=== PATIENT | male | born 1995 | race African-American/Black ===

== ENCOUNTER 2023-07-19 21:58 | Emergency (ER) | payer MEDICAID ==
[~2023-07-19] VITALS: Ht 167.6 cm; Wt 70.0 kg
[2023-07-19 22:15] VITALS: PULSE 89; RESP 18; O2SAT 100
[2023-07-19 23:07] LABS: Basophils # (auto) 0 10 ^3/uL (0-0.2); Basophils % (auto) 0.4 % (0.0-2.0); Eosinophils # (auto) 0 10 ^3/uL (0-0.8); Eosinophils % (auto) 0.3 % (0.0-7.0); Hematocrit 46.6 % (41.0-53.0); Hemoglobin 15.6 g/dL (13.5-17.5); Lymphocytes # (auto) 3.8 10 ^3/uL (0.4-5.4); Lymphocytes % (auto) 34.8 % (10.0-50.0); Mean Corpuscular Hemoglobin 29.3 pg (28.0-32.0); Mean Corpuscular Hgb Conc. 33.5 g/dL (32.0-36.0); Mean Corpuscular Volume 87.5 fL (80.0-100.0); Monocytes # (auto) 0.8 10 ^3/uL (0-1.3); Monocytes % (auto) 7.1 % (0.0-12.0); Neutrophils # (auto) 6.3 10 ^3/uL (1.6-8.6); Neutrophils % (auto) 57.4 % (37.0-80.0); Nucleated Red Blood Cells % 0.1 %; Red Blood Cells 5.33 10^6/uL (4.5-5.90); Red Cell Distribution Width 14.2 % (11.8-14.3); White Blood Cell 10.9 10^3/uL (4.4-10.8)
[2023-07-19 23:36] LABS: Acetaminophen < 2.0 UG/ML (10.0-20.0); Alanine Aminotransferase 48 U/L (7-40); Albumin 4.6 g/dL (3.2-4.8); Alkaline Phosphatase 88 U/L (46-116); Anion Gap 10 (5-15); Aspartate Aminotransferase 62 U/L (13-40); BUN/Creatinine Ratio 13.4 (10.0-20.0); Blood Alcohol 114.5 mg/dL (<10); Blood Urea Nitrogen 15 mg/dL (9-23); Calcium 9.9 mg/dL (8.5-10.1); Carbon Dioxide 26 mmol/L (20-30); Chloride 107 mmol/L (98-107); Glucose 66 mg/dL (74-106); Potassium 3.8 mmol/L (3.5-5.1); Salicylate < 3.0 mg/dL (2.8-20.0); Sodium 143 mmol/L (136-145); Total Protein 7.2 g/dL (5.7-8.2)
[2023-07-20 08:17] LABS: Urine Epithelial Cast None Seen /hpf (<5)
[2023-07-20 08:29] LABS: Urine Bacteria FEW /hpf (None Seen); Urine Blood Negative /uL (Negative); Urine Clarity Clear (Clear); Urine Color Yellow (Yellow); Urine Protein, UAD Negative (Negative); Urine Specific Gravity 1.022 (1.001-1.035); Urine Urobilinogen Normal (Negative); Urine WBC 2 /hpf (0 - 3); Urine pH 6.5 (5.0-8.0)
[2023-07-20 08:37] LABS: Amphetamine Screen, Urine Pos (NEGATIVE); Barbiturate Scree,Urine Neg (NEGATIVE); Benzodiazephine Screen, Urine Neg (NEGATIVE); Cocaine Screen, Urine Neg (NEGATIVE)
[2023-07-20 08:38] LABS: Cannabinoid Screen, Urine Neg (NEGATIVE); Opiate Scree,Urine Neg (NEGATIVE); Phencyclidine Screen, Urine Neg (NEGATIVE)
[2023-07-20 09:13] VITALS: RESP 16; O2SAT 98
[2023-07-20] MEDS: OLANZapine 5 MG TAB PO SCH ×2 (15:23→21:35)
[2023-07-20] MEDS ORDERED: LORazepam 0.5 MG TAB PO ONE (15:30)
[2023-07-20 20:15] VITALS: PULSE 84; RESP 19; O2SAT 99
[2023-07-21] MEDS: OLANZapine 5 MG TAB PO SCH (05:43)
[2023-07-21 08:00] VITALS: PULSE 76; RESP 16; O2SAT 98
[2023-07-21 17:43] VITALS: BP 118/78; PULSE 80; RESP 16; TEMP 98.1; O2SAT 98
== END 2023-07-21 18:00 | disposition short-term general hospital (02) ==
LOC: ER 21:58 → EDBD 21:58 → ER 07-21 12:02
DX: F29 Unspecified psychosis not due to a substance or known physiological condition (principal); F41.9 Anxiety disorder, unspecified; R41.82 Altered mental status, unspecified; F32.9 Major depressive disorder, single episode, unspecified; Z79.899 Other long term (current) drug therapy
CPT/HCPCS: 36415; 80053; 80307; 80320; 80329; 81001; 85025

== ENCOUNTER 2024-05-24 18:38 | Emergency (ER) | payer MEDICAID ==
[~2024-05-24] VITALS: Ht 165.1 cm; Wt 72.7 kg
[2024-05-24 20:06] LABS: Basophils # (auto) 0.1 10 ^3/uL (0-0.2); Basophils % (auto) 0.5 % (0.0-2.0); Eosinophils # (auto) 0 10 ^3/uL (0-0.8); Eosinophils % (auto) 0.3 % (0.0-7.0); Hematocrit 44.9 % (41.0-53.0); Hemoglobin 15.2 g/dL (13.5-17.5); Lymphocytes % (auto) 30.1 % (10.0-50.0); Mean Corpuscular Hgb Conc. 33.8 g/dL (32.0-36.0); Monocytes # (auto) 0.5 10 ^3/uL (0-1.3); Monocytes % (auto) 5.2 % (0.0-12.0); Neutrophils # (auto) 6.4 10 ^3/uL (1.6-8.6); Neutrophils % (auto) 63.9 % (37.0-80.0); Platelet Count (auto) 297 10^3/uL (140-450); Red Blood Cells 5.05 10^6/uL (4.5-5.90); Red Cell Distribution Width 14.1 % (11.8-14.3)
[2024-05-24 20:19] LABS: Chloride 108 mmol/L (98-107); Potassium 3.7 mmol/L (3.5-5.1); Sodium 142 mmol/L (136-145)
[2024-05-24 20:20] LABS: Anion Gap 11 (5-15); Calcium 9.8 mg/dL (8.7-10.4); Carbon Dioxide 23 mmol/L (20-31)
[2024-05-24 20:25] LABS: BUN/Creatinine Ratio 14.7 (10.0-20.0); Blood Urea Nitrogen 14 mg/dL (9-23); Glucose 113 mg/dL (74-106)
[2024-05-24 20:51] LABS: Blood Alcohol 63.3 mg/dL (<10)
--- NOTE | 2024-05-25 00:20 | ED.PDOC ---
Psychiatric HPI Comments 29-year-old male complaining of auditory hallucinations. Patient states he did drink alcohol and use methamphetamines this evening. Patient also reports a history of depression in his he was a friend. Patient denies any thoughts of hurting himself or hurting on else. Can not remember what he was medication was used to take. Patient is currently living on the streets. Patient brought in by EMS. Chief Complaint: Mental Health Time Seen by MD: 18:45 Reviewed Notes: Nurses Notes Information Source: Patient, Emergency Med Personnel Mode of Arrival: Ambulatory Presents with: Depression History of: Schizophrenia Past Medical History PAST MEDICAL HISTORY: Schizophrenia Surgical History: Denies all surgeries Family History Family History: Reviewed,noncontributory to illness, No family hx of Cancer, No family hx of DM, No family hx of Heart demarcus, No family hx of HTN, No family hx ofKidney demarcus, No family hx of Liver demarcus, No family hx of Lung demarcus, No family hx of Stroke Social History Smoker: Non-Smoker Alcohol: Denies ETOH Use Drugs: Denies Drug Use Lives In: Home Constitutional: denies: chills, diaphoresis, fatigue, fever, malaise, sweats, weakness, others EENTM: denies: blurred vision, double vision, ear bleeding, ear discharge, ear drainage, ear pain, ear ringing, eye pain, eye redness, hearing loss, mouth pain, mouth swelling, nasal discharge, nose bleeding, nose congestion, nose pain, photophobia, tearing, throat pain, throat swelling, voice changes, others Respiratory: denies: cough, hemoptysis, orthopnea, SOB at rest, shortness of breath, SOB with excertion, stridor, wheezing, others Cardiovascular: denies: chest pain, dizzy spells, diaphoresis, Dyspnea on exertion, edema, irregular heart beat, left arm pain, lightheadedness, palpitations, PND, syncope, others Gastrointestinal: denies: abdomen distended, abdominal pain, blood streaked bowels, constipated, diarrhea, dysphagia, difficulty swallowing, hematemesis, melena, nausea, poor appetite, poor fluid intake, rectal bleeding, rectal pain, vomiting, others Genitourinary: denies: burning, dysuria, flank pain, frequency, hematuria, incontinence, penile discharge, penile sore, pain, testicle pain, testicle swelling, urgency, others Neurological: denies: dizziness, fainting, headache, left sided numbness, left sided weakness, numbness, paresthesia, pre-existing deficit, right sided numbness, right sided weakness, seizure, speech problems, tingling, tremors, weakness, others Musculoskeletal: denies: back pain, gout, joint pain, joint swelling, muscle pain, muscle stiffness, neck pain, others Integumetry: denies: bruises, change in color, change in hair/nails, dryness, laceration, lesions, lumps, rash, wounds, others Allergic/Immunocompromised: denies: Difficulty Healing, Frequent Infections, Hives, Itching, others Physical Exam General Appearance: No Apparent Distress, Normal HEENT: Normal ENT Inspection, Pharynx Normal, TMs Normal Neck: Full Range of Motion, Non-Tender, Normal, Normal Inspection Respiratory: Chest Non-Tender, Lungs Clear, No Accessory Muscle Use, No Respiratory Distress, Normal Breath Sounds Cardiovascular: No Edema, No JVD, No Murmur, No Gallop, Normal Peripheral Pulses, Regular Rate/Rhythm Breast Exam: Deferred Gastrointestinal: No Organomegaly, Non Tender, No Pulsatile Mass, Normal Bowel Sounds, Soft Genitalia: Deferred Pelvic: Deferred Rectal: Deferred Extremities: No calf tenderness, Normal capillary refill, Normal inspection, Normal range of motion, Non-tender, No pedal edema Musculoskeletal : Apperance: Normal Neurologic: Alert, warp placer II-XII nml as Tested, No Motor Deficits, Normal Affect, Normal Mood, No Sensory Deficits Cerebellar Function: Normal Reflexes: Normal Skin: Dry, Normal Color, Warm Lymphatic: No Adenopathy Was a procedure done? Was a procedure done?: No Psych Differential Dx Psych. Differential Dx: Anxiety, Bipolar Disorder, Depression, Hopeless OD Differential Dx: Schizophrenia, Substance Abuse X-Ray, Labs, Meds, VS Vital Signs Date Time Temp Pulse Resp B/P (MAP) Pulse Ox O2 Delivery O2 Flow Rate FiO2 05/24/24 18:40 97.7 113 18 149/80 (103) 100 Lab Test 05/24/24 19:44 Range/Units White Blood Count 10.0 4.4-10.8 10^3/uL Red Blood Count 5.05 4.5-5.90 10^6/uL Hemoglobin 15.2 13.5-17.5 g/dL Hematocrit 44.9 41.0-53.0 % Mean Corpuscular Volume 89.0 80.0-100.0 fL Mean Corpuscular Hemoglobin 30.0 28.0-32.0 pg Mean Corpuscular Hemoglobin Concent 33.8 32.0-36.0 g/dL Red Cell Distribution Width 14.1 11.8-14.3 % Platelet Count 297 140-450 10^3/uL Mean Platelet Volume 8.0 6.9-10.8 fL Neutrophils (%) (Auto) 63.9 37.0-80.0 % Lymphocytes (%) (Auto) 30.1 10.0-50.0 % Monocytes (%) (Auto) 5.2 0.0-12.0 % Eosinophils (%) (Auto) 0.3 0.0-7.0 % Basophils (%) (Auto) 0.5 0.0-2.0 % Neutrophils # (Auto) 6.4 1.6-8.6 10 ^3/uL Lymphocytes # (Auto) 3.0 0.4-5.4 10 ^3/uL Monocytes # (Auto) 0.5 0-1.3 10 ^3/uL Eosinophils # (Auto) 0 0-0.8 10 ^3/uL Basophils # (Auto) 0.1 0-0.2 10 ^3/uL Nucleated Red Blood Cells 0.0 % Sodium Level 142 136-145 mmol/L Potassium Level 3.7 3.5-5.1 mmol/L Chloride Level 108 H 98-107 mmol/L Carbon Dioxide Level 23 20-31 mmol/L Anion Gap 11 5-15 Blood Urea Nitrogen 14 9-23 mg/dL Creatinine 0.95 0.700-1.30 mg/dL Glomerular Filtration Rate Calc 110 >90 mL/min BUN/Creatinine Ratio 14.7 10.0-20.0 Serum Glucose 113 H 74-106 mg/dL Calcium Level 9.8 8.7-10.4 mg/dL Plasma/Serum Blood Alcohol 63.3 H <10 mg/dL X-Ray, Labs, Meds, VS Comment Imaging: X-rays and CT scans were reviewed and interpreted by this provider, imaging shows no fractures and no pathological disease. Pending radiology tri guerrero. Laboratory: Labs reviewed and interpreted by this provider. No significant abnormalities noted. Patient has prior medical visits reviewed. Med reconciliation performed Vital signs reviewed Pending psychiatric consult Time of 1ST Reevaluation: 00:20 Reevaluation 1ST: Improved Patient Education/Counseling: Diagnosis, Treatment Family Education/Counseling: Diagnosis Departure 1 Departure Time of Disposition: 00:18 Impression: Primary Impression: Psychosis Qualified Codes: F20.1 - Disorganized schizophrenia Additional Impressions: Drug abuse Schizophrenia Qualified Codes: F20.1 - Disorganized schizophrenia Disposition: 30 STILL A PATIENT Condition: Stable Discharged With: Self Critical Care Note Critical Care Time?: No Stability Stability form required: No Heart Score Heart Score: Heart Score Response (Comments) Value History N/A 0 EKG N/A 0 Age N/A 0 Risk Factors N/A 0 Troponin N/A 0 Total 0 JENNI GIBBONS May 25, 2024 00:20
[2024-05-25 02:00] VITALS: BP 125/83; PULSE 95; RESP 18; O2SAT 98
--- NOTE | 2024-05-25 03:50 | DVHINCON2 ---
Date of Service if different f: May 25, 2024 Time of Service: 03:32 Consultation ([facility]) Labs Laboratory Tests Test 05/24/24 19:44 White Blood Count 10.0 10^3/uL (4.4-10.8) Red Blood Count 5.05 10^6/uL (4.5-5.90) Hemoglobin 15.2 g/dL (13.5-17.5) Hematocrit 44.9 % (41.0-53.0) Mean Corpuscular Volume 89.0 fL (80.0-100.0) Mean Corpuscular Hemoglobin 30.0 pg (28.0-32.0) Mean Corpuscular Hemoglobin Concent 33.8 g/dL (32.0-36.0) Red Cell Distribution Width 14.1 % (11.8-14.3) Platelet Count 297 10^3/uL (140-450) Mean Platelet Volume 8.0 fL (6.9-10.8) Neutrophils (%) (Auto) 63.9 % (37.0-80.0) Lymphocytes (%) (Auto) 30.1 % (10.0-50.0) Monocytes (%) (Auto) 5.2 % (0.0-12.0) Eosinophils (%) (Auto) 0.3 % (0.0-7.0) Basophils (%) (Auto) 0.5 % (0.0-2.0) Neutrophils # (Auto) 6.4 10 ^3/uL (1.6-8.6) Lymphocytes # (Auto) 3.0 10 ^3/uL (0.4-5.4) Monocytes # (Auto) 0.5 10 ^3/uL (0-1.3) Eosinophils # (Auto) 0 10 ^3/uL (0-0.8) Basophils # (Auto) 0.1 10 ^3/uL (0-0.2) Nucleated Red Blood Cells 0.0 % Sodium Level 142 mmol/L (136-145) Potassium Level 3.7 mmol/L (3.5-5.1) Chloride Level 108 mmol/L (98-107) Carbon Dioxide Level 23 mmol/L (20-31) Anion Gap 11 (5-15) Blood Urea Nitrogen 14 mg/dL (9-23) Creatinine 0.95 mg/dL (0.700-1.30) Glomerular Filtration Rate Calc 110 mL/min (>90) BUN/Creatinine Ratio 14.7 (10.0-20.0) Serum Glucose 113 mg/dL (74-106) Calcium Level 9.8 mg/dL (8.7-10.4) Plasma/Serum Blood Alcohol 63.3 mg/dL (<10) Appearance: Stated age Psychomotor activity: WNL Behavioral: Cooperative Eye contact: Appropriate Speech: WNL Affect: Appropriate Mood: Depressed Thought processes: Linear/Goal-directed Thought content: Hallucinations (auditory) Suicidal ideations: Absent Homicidal ideations: Absent Orientation: Person, Place, Time, Situation Memory intact: Recent Intellect: Average Abstractability: WNL Concentration: Adequate Attention: Adequate Judgement: Poor Insight: Poor Vitals Vital Signs Date Time Temp Pulse Resp B/P (MAP) Pulse Ox O2 Delivery O2 Flow Rate FiO2 05/25/24 02:00 95 18 98 Room Air* 0 21 05/25/24 02:00 125/83 (97) 05/24/24 18:40 97.7 Treatment plan discussed: With staff Medication adjusted: Yes Labs ordered: No Psychotherapy provided: No Type: Voluntary History of Present Illness Reason for Consult : psychiatric evaluation PER ED PHYSICIAN: 29-year-old male complaining of auditory hallucinations. Patient states he did drink alcohol and use methamphetamines this evening. Patient also reports a history of depression in his he was a friend. Patient denies any thoughts of hurting himself or hurting on else. Can not remember what he was medication was used to take. Patient is currently living on the streets. Patient brought in by EMS. PSYCHIATRIST HPI: The patient was seen and evaluated at [facility] ED via telepsychiatry platform. 29 yr old male reported he feels depressed. He has been hearing voices. He stated that zyprexa helped him reduce his voices in the past, but he hasn't been on it since he has been homeless. He stated he would feel comfortable going to the Crisis [facility]idential treatment to help him stabilize. She denied having suicidal and homicidal ideation and auditory and visual hallucinations. Past Psychiatric History : Diagnosed with schizophrenia and ADHD. Hospitalized multiple times. One past suicide attempt by taking medicine. Past Medical History: none Current Medications: None Substance use: Drinks alcohol every day. Smokes MJ occasionally. Uses meth daily. Denied other substance use. Has been to rehab in past. Social History : Homeless. Diagnosis: UNSPECIFIED PSYCHOTIC DISORDER; METH USE DISORDER Formulation: This 29yr old male appears to suffer psychosis which is likely due to his daily meth use, but could be due to schizophrenia exacerbated by meth use. He may benefit from starting zyprexa to reduce hallucinations and referral to the crisis residential treatment. He does not meet criteria for psychiatric hospitalization. Plan: 1. The patient is psychologically cleared for discharge. 2. Legal-voluntary. 3. Medications:recommend starting Zyprexa 5mg BID to help reduce hallucinations. 4. Follow up with outpatient mental health for medication management and therap y. 5. Please contact psychiatry if further follow up or reevaluation is desired. 6. Case discussed with ED FRAN Shearer. Assessment/Diagnosis/Plan Reviewed: Labs, Medications, Previous Orders EDIL NESBITT MD May 25, 2024 02:32
== END 2024-05-25 04:48 | disposition home or self-care (01) ==
LOC: ER 18:38 → EDBD 18:38 → ER 05-25 04:48
DX: F29 Unspecified psychosis not due to a substance or known physiological condition (principal); F20.1 Disorganized schizophrenia; F19.10 Other psychoactive substance abuse, uncomplicated
CPT/HCPCS: 36415; 80048; 80320; 85025

== ENCOUNTER 2024-05-25 13:40 | Inpatient (IN) | payer MEDICAID ==
[~2024-05-25] VITALS: Ht 167.6 cm; Wt 68.9 kg
--- NOTE | 2024-05-25 14:29 | ED.PDOC ---
Musculoskeletal HPI Comments 29 y/o male pt presents to the ER requesting saline. Patient reports that he drank 4 large beers today and used unknown drugs yesterday due to high. Patient denying any nausea. Patient also stating that he is hungry and requesting a sandwich. Patient complaining of bilateral feet pain. Patient has swelling to bilateral feet. Patient's feet dirty with mild odor. Patient has using open wound to the 1st and 4th digit of the left foot. Chief Complaint: Lower Extremity Time Seen by MD: 14:07 Primary Care Provider: NONE Reviewed Notes: Nurses Notes, Medications Allergies: Coded Allergies: NO KNOWN ALLERGIES (Unverified , 07/19/23) Information Source: Patient Mode of Arrival: Ambulatory Past Medical History PAST MEDICAL HISTORY: Schizophrenia Surgical History: Denies all surgeries Family History Family History: Reviewed,noncontributory to illness, No family hx of Cancer, No family hx of DM, No family hx of Heart demarcus, No family hx of HTN, No family hx of Kidney demarcus, No family hx of Liver demarcus, No family hx of Lung demarcus, No family hx of Stroke Social History Smoker: Non-Smoker Alcohol: Denies ETOH Use Drugs: Denies Drug Use Lives In: Home Constitutional: reports: others (Sleepy and under the influence of alcohol) EENTM: denies: blurred vision, double vision, ear bleeding, ear discharge, ear drainage, ear pain, ear ringing, eye pain, eye redness, hearing loss, mouth pain, mouth swelling, nasal discharge, nose bleeding, nose congestion, nose pain, photophobia, tearing, throat pain, throat swelling, voice changes, others Respiratory: denies: cough, hemoptysis, orthopnea, SOB at rest, shortness of breath, SOB with excertion, stridor, wheezing, others Cardiovascular: denies: chest pain, dizzy spells, diaphoresis, Dyspnea on exertion, edema, irregular heart beat, left arm pain, lightheadedness, palpitations, PND, syncope, others Gastrointestinal: denies: abdomen distended, abdominal pain, blood streaked bowels, constipated, diarrhea, dysphagia, difficulty swallowing, hematemesis, melena, nausea, poor appetite, poor fluid intake, rectal bleeding, rectal pain, vomiting, others Genitourinary: denies: burning, dysuria, flank pain, frequency, hematuria, incontinence, penile discharge, penile sore, pain, testicle pain, testicle swelling, urgency, others Neurological: denies: dizziness, fainting, headache, left sided numbness, left sided weakness, numbness, paresthesia, pre-existing deficit, right sided numbness, right sided weakness, seizure, speech problems, tingling, tremors, weakness, others Musculoskeletal: reports: others (Bilateral feet pain) Integumetry: denies: bruises, change in color, change in hair/nails, dryness, laceration, lesions, lumps, rash, wounds, others Allergic/Immunocompromised: denies: Difficulty Healing, Frequent Infections, Hives, Itching, others Hematologic/Lymphatic: denies: anemia, blood clots, easy bleeding, easy bruising, swollen glands, others Endocrine: denies: excessive hunger, excessive sweating, excessive thirst, excessive urination, flushing, intolerance to cold, intolerance to heat, unexplained weight gain, unexplained weight loss, others Psychiatric: reports: others (Patient reports that he is hearing voices and that the voices are telling him to hurt others. Patient reports the voices are telling him to get violent) All Other Systems: Reviewed and Negative Physical Exam General Appearance: Normal HEENT: Normal ENT Inspection, Pharynx Normal, TMs Normal Neck: Full Range of Motion, Non-Tender, Normal, Normal Inspection Respiratory: Chest Non-Tender, Lungs Clear, No Accessory Muscle Use, No Respiratory Distress, Normal Breath Sounds Cardiovascular: No Edema, No JVD, No Murmur, No Gallop, Normal Peripheral Pulses, Regular Rate/Rhythm Breast Exam: Deferred Gastrointestinal: No Organomegaly, Non Tender, No Pulsatile Mass, Normal Bowel Sounds, Soft Genitalia: Deferred Pelvic: Deferred Rectal: Deferred Extremities: No pedal edema Musculoskeletal : Location: Bilateral Extremity Location: Foot (mild swelling), Great Toe (Open wound to great toe on left foot), Toe 4 (Open wound to toe on left foot) Apperance: Swelling, Tenderness: Mild Neurologic: Alert, hammer runner II-XII nml as Tested, No Motor Deficits, Normal Affect, Normal Mood, No Sensory Deficits Cerebellar Function: Normal Reflexes: Normal Skin: Dry, Normal Color, Warm Lymphatic: No Adenopathy Was a procedure done? Was a procedure done?: No Differential Diagnosis EXT Differential Diagnosis: Cellulitis, Fracture, Contusion X-Ray, Labs, Meds, VS Vital Signs Date Time Temp Pulse Resp B/P (MAP) Pulse Ox O2 Delivery O2 Flow Rate FiO2 05/25/24 14:49 105 14 97 Room Air 05/25/24 14:49 99.0 105 14 119/77 (91) 97 99.0 05/25/24 13:46 98.3 100 16 141/84 (103) 100 PATIENT: WIL ROMEROACCT: [id number]: [id number] : 1995 LOC: ER ROOM / BED: / AGE / SEX: 29 / M ADM STATUS: REG ER SERVICE 26 ORDERING PHYSICIAN: ZHEN ARENAS TRANSLATIONAL SPECIALIST PROCEDURE(s): RFOOT - R FOOT 3 VIEW XRAY REASON: swelling, pain, possible infection 1st and 4th digit ORDER NUMBER(s): [id number], ACCESSION NUMBER(s): [id number] XY R FOOT 3 VIEW XRAY, INDICATION: swelling, pain, possible infection 1st and 4th digit TECHNICAL DATA: Frontal, oblique and lateral views were obtained of the right foot. COMPARISON: None FINDINGS: No fracture is identified. Joint spaces are maintained. Alignment is anatomic. The hallux sesamoids appear normal. Soft tissues are within normal limits. IMPRESSION: No osseous erosive changes are visualized. No acute fracture or dislocation of the right foot. ATED BY: MAURICIO WELCH MD DICTATED DATE/TIME: 05/25/24 150 SIGNED BY: MAURICIO WELCH MD SIGNED DATE/TIME: 05/25/24 1503 CC: PATIENT: WIL ROMERO ACCT: [id number]: [id number] : 1995 LOC: ER ROOM / BED: / AGE / SEX: 29 / M ADM STATUS: REG ER SERVICE 26 ORDERING PHYSICIAN: ZHEN ARENAS TRANSLATIONAL SPECIALIST PROCEDURE(s): LFOOT - L FOOT 3 VIEW XRAY REASON: bilateral feet pain, open wounds left foot ORDER NUMBER(s): [id number], ACCESSION NUMBER(s): [id number] CLINICAL INDICATION: bilateral feet pain, open wounds left foot TECHNIQUE: 3 radiographic views of the left foot were obtained. Comparison: None FINDINGS/IMPRESSION: Linear lucency ovr the distal part of the 4th toe distal phalanx on the oblique view which may be from overlying structures with nondisplaced fracture not completely excluded. Recommend correlation with point tenderness. Otherwise, no evidence of acute traumatic fractures or dislocations. The visualized joint space is well maintained. The alignment is anatomical. ATED BY: DEONNA DOMINGUEZ DO DICTATED DATE/TIME: 05/25/24 150 SIGNED BY: DEONNA DOMINGUEZ DO SIGNED DATE/TIME: 05/25/24 1507 CC: X-Ray, Labs, Meds, VS Comment Patient is sitting in a chair. Patient reports that he is hearing voices and that the horse or time to hurt people. Patient reports that he is going to get his eyelids. Patient requesting to go to a psych meneses. Patient got up and knocked over metal tray in room. Patient talking to people that are not present and yelling racial and taoism slurs. Patient to be moved to main ER for evaluation. Report given to Dr. Herrera Time of 1ST Reevaluation: 14:45 Reevaluation 1ST: Improved Time of 2ND Reevaluation: 15:10 Reevaluation 2ND: hallucinations Patient Education/Counseling: Other (transferred) Family Education/Counseling: Other, No Family Present Departure 1 Departure Time of Disposition: 15:21 Impression: Primary Impression: Fracture of toe of left foot Qualified Codes: S92.505A - Nondisplaced unspecified fracture of left lesser toe(s), initial encounter for closed fracture Additional Impressions: Hallucination, visual Auditory hallucinations Violent behavior Disposition: ADMITTED INPATIENT Condition: Guarded Critical Care Note Critical Care Time?: No Stability Stability form required: No Heart Score Heart Score: Heart Score Response (Comments) Value History N/A 0 EKG N/A 0 Age N/A 0 Risk Factors N/A 0 Troponin N/A 0 Total 0 ZHEN ARENAS [facility] May 25, 2024 14:29
--- NOTE | 2024-05-25 15:05 | DVH ---
XY R FOOT 3 VIEW XRAY, INDICATION: swelling, pain, possible infection 1st and 4th digit TECHNICAL DATA: Frontal, oblique and lateral views were obtained of the right foot. COMPARISON: None FINDINGS: No fracture is identified. Joint spaces are maintained. Alignment is anatomic. The hallux sesamoids a ppear normal. Soft tissues are within normal limits. IMPRESSION: No osseous erosive changes are visualized. No acute fracture or dislocation of the right foot.
--- NOTE | 2024-05-25 15:09 | DVH ---
CLINICAL INDICATION: bilateral feet pain, open wounds left foot TECHNIQUE: 3 radiographic views of the left foot were obtained. Comparison: None FINDINGS/IMPRESSION: Linear lucency ovr the distal part of the 4th toe distal phalanx on the oblique view which may be fro m overlying structures with nondisplaced fracture not completely excluded. Recommend correlation wit h point tenderness. Otherwise, no evidence of acute traumatic fractures or dislocations. The visualized joint space is well maintained. The alignment is anatomical.
[2024-05-25] MEDS: HALOPERIDOL LACTATE 5 MG/ML INJ VIAL ONE (15:19)
[2024-05-25] MEDS: MIDAZOLAM HCL 5 MG/ML-1ML VIAL ONE ×2 (15:19→15:20)
[2024-05-25] MEDS: HALOPERIDOL LACTATE 5 MG/ML INJ VIAL IM ONE (15:22)
[2024-05-25] MEDS: MIDAZOLAM HCL 5 MG/ML-1ML VIAL IM ONE (15:22)
[2024-05-25 15:58] VITALS: PULSE 109; RESP 25; O2SAT 94
[2024-05-25 16:32] LABS: Basophils # (auto) 0 10 ^3/uL (0-0.2); Basophils % (auto) 0.5 % (0.0-2.0); Eosinophils # (auto) 0.1 10 ^3/uL (0-0.8); Eosinophils % (auto) 1.7 % (0.0-7.0); Hematocrit 39.2 % (41.0-53.0); Hemoglobin 13.3 g/dL (13.5-17.5); Lymphocytes # (auto) 2.7 10 ^3/uL (0.4-5.4); Lymphocytes % (auto) 35.1 % (10.0-50.0); Mean Corpuscular Hgb Conc. 33.8 g/dL (32.0-36.0); Mean Corpuscular Volume 88.7 fL (80.0-100.0); Monocytes # (auto) 0.7 10 ^3/uL (0-1.3); Monocytes % (auto) 9.3 % (0.0-12.0); Neutrophils # (auto) 4.1 10 ^3/uL (1.6-8.6); Neutrophils % (auto) 53.4 % (37.0-80.0); Nucleated Red Blood Cells % 0.1 %; Platelet Count (auto) 242 10^3/uL (140-450); Red Blood Cells 4.42 10^6/uL (4.5-5.90); White Blood Cell 7.6 10^3/uL (4.4-10.8)
[2024-05-25 16:47] LABS: Chloride 108 mmol/L (98-107); Potassium 3.6 mmol/L (3.5-5.1); Sodium 142 mmol/L (136-145)
[2024-05-25 16:48] LABS: Anion Gap 10 (5-15); Carbon Dioxide 24 mmol/L (20-31)
[2024-05-25 16:49] LABS: Calcium 9.3 mg/dL (8.7-10.4)
[2024-05-25 16:54] LABS: BUN/Creatinine Ratio 21.1 (10.0-20.0); Blood Alcohol 45.2 mg/dL (<10); Blood Urea Nitrogen 16 mg/dL (9-23); Glucose 90 mg/dL (74-106)
[2024-05-25 17:12] LABS: Salicylate < 3.0 mg/dL (-30)
[2024-05-25 17:32] LABS: Acetaminophen < 2.0 UG/ML (10.0-20.0)
--- NOTE | 2024-05-25 18:38 | ED.PDOC ---
X-Ray, Labs, Meds, VS Vital Signs Date Time Temp Pulse Resp B/P (MAP) Pulse Ox O2 Delivery O2 Flow Rate FiO2 05/25/24 18:38 97 15 111/43 (65) 97 05/25/24 17:53 101 18 110/66 (81) 97 05/25/24 15:58 109 25 94 Room Air* 0 21 05/25/24 15:56 109 25 111/65 (80) 94 05/25/24 14:49 105 14 97 Room Air 05/25/24 14:49 99.0 105 14 119/77 (91) 97 99.0 05/25/24 13:46 98.3 100 16 141/84 (103) 100 Lab Test 05/25/24 16:18 Range/Units White Blood Count 7.6 4.4-10.8 10^3/uL Red Blood Count 4.42 L 4.5-5.90 10^6/uL Hemoglobin 13.3 L 13.5-17.5 g/dL Hematocrit 39.2 #L 41.0-53.0 % Mean Corpuscular Volume 88.7 80.0-100.0 fL Mean Corpuscular Hemoglobin 30.0 28.0-32.0 pg Mean Corpuscular Hemoglobin Concent 33.8 32.0-36.0 g/dL Red Cell Distribution Width 14.0 11.8-14.3 % Platelet Count 242 140-450 10^3/uL Mean Platelet Volume 8.1 6.9-10.8 fL Neutrophils (%) (Auto) 53.4 37.0-80.0 % Lymphocytes (%) (Auto) 35.1 10.0-50.0 % Monocytes (%) (Auto) 9.3 0.0-12.0 % Eosinophils (%) (Auto) 1.7 0.0-7.0 % Basophils (%) (Auto) 0.5 0.0-2.0 % Neutrophils # (Auto) 4.1 1.6-8.6 10 ^3/uL Lymphocytes # (Auto) 2.7 0.4-5.4 10 ^3/uL Monocytes # (Auto) 0.7 0-1.3 10 ^3/uL Eosinophils # (Auto) 0.1 0-0.8 10 ^3/uL Basophils # (Auto) 0 0-0.2 10 ^3/uL Nucleated Red Blood Cells 0.1 % Sodium Level 142 136-145 mmol/L Potassium Level 3.6 3.5-5.1 mmol/L Chloride Level 108 H 98-107 mmol/L Carbon Dioxide Level 24 20-31 mmol/L Anion Gap 10 5-15 Blood Urea Nitrogen 16 9-23 mg/dL Creatinine 0.76 0.700-1.30 mg/dL Glomerular Filtration Rate Calc 123 >90 mL/min BUN/Creatinine Ratio 21.1 H 10.0-20.0 Serum Glucose 90 74-106 mg/dL Calcium Level 9.3 8.7-10.4 mg/dL Salicylates Level < 3.0 -30 mg/dL Acetaminophen Level < 2.0 L 10.0-20.0 UG/ML Plasma/Serum Blood Alcohol 45.2 H <10 mg/dL Current Medications Medications (Trade) Dose Ordered Sig/Shireen Route Start Time Stop Time Status Last Admin Midazolam HCl (Versed Injection) 10 mg ONCE ONCE IM 05/25/24 16:30 05/25/24 16:31 DC 05/25/24 15:22 Haloperidol Lactate (Haldol) 10 mg ONCE ONCE IM 05/25/24 16:30 05/25/24 16:31 DC 05/25/24 15:22 The patient will be admitted with toxic encephalopathy The patient remained somewhat altered Time of 1ST Reevaluation: 18:37 (Patient initially presented with foot pain to the fast track area was seen by a nurse practitioner. I was made aware of the patient when patient became combative. i went to assess the patient, patient was responding to internal stimuli, being combative, having auditory and visual hallucinations.) Reevaluation 1ST: Improved Time of 2ND Reevaluation: 15:10 Reevaluation 2ND: hallucinations Patient Education/Counseling: Pt Unresponsive Family Education/Counseling: No Family Present Departure 1 Departure Time of Disposition: 15:21 Impression: Primary Impression: Fracture of toe of left foot Qualified Codes: S92.505A - Nondisplaced unspecified fracture of left lesser toe(s), initial encounter for closed fracture Additional Impressions: Violent behavior Auditory hallucinations Hallucination, visual Metabolic encephalopathy Disposition: 30 STILL A PATIENT Condition: Guarded Critical Care Note Critical Care Time?: Yes Critical care comment: Patient with acute altered mental status and combative behavior Authorized and Performed by: Yvonne Herrera MD Total critical care time: Approximately 38 minutes Due to a high probability of clinically significant, life threatening deterioration, the patient required my highest level of preparedness to intervene emergently and I personally spent this critical care time directly and personally managing the patient. This critical care time included obtaining a history; examining the patient; pulse oximetry; ordering and review of studies; arranging urgent treatment with development of a management plan; evaluation of patient's response to treatment; frequent reassessment; and, discussions with other providers. This critical care time was performed to assess and manage the high probability of imminent, life-threatening deterioration that could result in multi-organ failure. It was exclusive of separately billable procedures and treating other patients and teaching time. Please see my other sections and the rest of the note for further information on patient assessment and treatment. YVONNE HERRERA MD May 25, 2024 18:38 JHONNY HUTCHINS MD May 25, 2024 21:25
[2024-05-25 21:00] VITALS: PULSE 92; RESP 20; O2SAT 96
[2024-05-25] MEDS ORDERED: MORPHINE SULFATE INJ 2 MG/ml SYRG IV PRN (23:00)
[2024-05-25] MEDS ORDERED: DOCUSATE SOD 100 MG CAP PO PRN (23:00)
[2024-05-25] MEDS ORDERED: NITROGLYCERIN 0.4 MG SL TAB SL PRN (23:00)
[2024-05-25] MEDS ORDERED: ONDANSETRON HCL 4 MG/2 ML VIAL IV PRN (23:00)
--- NOTE | 2024-05-25 23:33 | DVHHPRES ---
History of Present Illness Resident Creating Document: JESS SOUZA RESIDENT History of Present Illness Patient is 29 years old male with past medical history of schizophrenia, substance abuse marijuana, cannabinoids, alcoholism came with a complaint of excessive alcohol drinking. Patient reported he had 4 large AR of alcohol and other unknown substance abuse yesterday. Following that patient was feeling a little bit confused and that is what brought him to the hospital. Patient also complained of bony pain of the foot. Patient denied any chest pain, shortness of breath, fever, dysuria, dysarthria, acute joint pain or swelling. Lab workup revealed serum alcohol 45.2. X-ray of the left foot revealed- Linear lucency over the distal part of the 4th toe distal phalanx on the oblique view which may be from overlying structures with nondisplaced fracture not completely excluded. Recommend correlation with point tenderness. Otherwise, no evidence of acute traumatic fractures or dislocations. History of right foot reviewed-No osseous erosive changes are visualized. No acute fracture or dislocation of the right foot. Past Medical History Schizophrenia, history of polysubstance abuse, history of alcoholism Past Surgical History None Past Social History Patient could not provide detailed family history Review of Systems Review of Systems Allergy- NKDA Personal History/ Social History- substance abuse, alcohol ingestion Patient was seen today at the bedside. Patient reports bony pain Cardiovascular- deny acute chest pain or shortness of breath or cough or palpitation Respiratory- denies cough or short of breath or wheezing Gastrointestinal- denies any rectal bleeding, nausea or vomiting Musculoskeletal-denies acute joint swelling or tenderness or redness Neurological- denies acute dysarthria, dysphagia, change in vision Psychiatry- denies depression or SI or HI Skin- denies acute rash or purpura Allergies: Coded Allergies: NO KNOWN ALLERGIES (Unverified , 07/19/23) Medications Current Medications Medications Dose Ordered Sig/Shireen Route Start Time Stop Time Status Last Admin Dose Admin Ondansetron HCl 4 mg Q4HP PRN IV 05/25/24 23:00 Docusate Sodium 100 mg BIDPRN PRN PO 05/25/24 23:00 Morphine Sulfate 2 mg Q4HPRN PRN IV 05/25/24 23:00 Nitroglycerin 0.4 mg Q5MINP PRN SL 05/25/24 23:00 Morphine Sulfate 2 mg Q30M PRN IV 05/25/24 23:00 Folic Acid 1 mg/ Multivitamins 10 ml/Magnesium Sulfate 8 meq/ Thiamine HCl 100 mg/Dextrose 1,013.2 ml @ 125.001 mls/hr DAILY@1800 INJ 05/26/24 18:00 UNV Thiamine HCl 100 mg DAILY IV 05/26/24 10:00 UNV Folic Acid 1 mg DAILY PO 05/26/24 10:00 UNV Multivitamins 1 tab DAILY PO 05/26/24 10:00 UNV Lorazepam 1 mg Q4H IV 05/25/24 23:30 UNV Exam Vital Signs Vital Signs Date Time Temp Pulse Resp B/P (MAP) Pulse Ox O2 Delivery O2 Flow Rate FiO2 05/25/24 22:30 81 16 117/73 (88) 96 05/25/24 21:00 Room Air* 0 21 05/25/24 14:49 99.0 99.0 Exam General examination- HEENT- PEERLA, no acute nasal discharge Cardiovascular- S1-S2 audible, rate and rhythm regular, no murmur Respiratory- CTAB, no wheeze or rhonchi Gastrointestinal-nontender, bowel sound+. Nondistended Musculoskeletal-no acute joint swelling or tenderness or redness# Lower extremity- Neurological- cranial nerves intact, no acute dysarthria or dysphagia Psychiatry- denies depression or SI or HI Skin- no acute rash or purpura Labs/Xrays Labs Test 05/25/24 16:18 Range/Units White Blood Count 7.6 4.4-10.8 10^3/uL Red Blood Count 4.42 L 4.5-5.90 10^6/uL Hemoglobin 13.3 L 13.5-17.5 g/dL Hematocrit 39.2 #L 41.0-53.0 % Mean Corpuscular Volume 88.7 80.0-100.0 fL Mean Corpuscular Hemoglobin 30.0 28.0-32.0 pg Mean Corpuscular Hemoglobin Concent 33.8 32.0-36.0 g/dL Red Cell Distribution Width 14.0 11.8-14.3 % Platelet Count 242 140-450 10^3/uL Mean Platelet Volume 8.1 6.9-10.8 fL Neutrophils (%) (Auto) 53.4 37.0-80.0 % Lymphocytes (%) (Auto) 35.1 10.0-50.0 % Monocytes (%) (Auto) 9.3 0.0-12.0 % Eosinophils (%) (Auto) 1.7 0.0-7.0 % Basophils (%) (Auto) 0.5 0.0-2.0 % Neutrophils # (Auto) 4.1 1.6-8.6 10 ^3/uL Lymphocytes # (Auto) 2.7 0.4-5.4 10 ^3/uL Monocytes # (Auto) 0.7 0-1.3 10 ^3/uL Eosinophils # (Auto) 0.1 0-0.8 10 ^3/uL Basophils # (Auto) 0 0-0.2 10 ^3/uL Nucleated Red Blood Cells 0.1 % Sodium Level 142 136-145 mmol/L Potassium Level 3.6 3.5-5.1 mmol/L Chloride Level 108 H 98-107 mmol/L Carbon Dioxide Level 24 20-31 mmol/L Anion Gap 10 5-15 Blood Urea Nitrogen 16 9-23 mg/dL Creatinine 0.76 0.700-1.30 mg/dL Glomerular Filtration Rate Calc 123 >90 mL/min BUN/Creatinine Ratio 21.1 H 10.0-20.0 Serum Glucose 90 74-106 mg/dL Calcium Level 9.3 8.7-10.4 mg/dL Salicylates Level < 3.0 -30 mg/dL Acetaminophen Level < 2.0 L 10.0-20.0 UG/ML Plasma/Serum Blood Alcohol 45.2 H <10 mg/dL Assessment/Plan Assessment/Plan # toxic encephalopathy likely due to substance abuse and alcoholic intoxication -history of alcoholism and substance abuse -> serum alcohol level >45 -pending UDS report -Patient reported feeling lb confused after alcohol ingestion -continue Ativan as prescribed -continue banana bag as prescribed -continue multivitamin as prescribed # suspected alcohol intoxication -history of alcoholism -serum alcohol level> 45 Patient reported feeling lb confused after alcohol ingestion -continue Ativan as prescribed -continue banana bag as prescribed -continue multivitamin as prescribed # history of substance abuse -patient reported using methamphetamine, marijuana -pending UDS report # history of schizophrenia -outpatient follow up # suspected left 4th toe fracture X-ray of the left foot revealed- Linear lucency over the distal part of the 4th toe distal phalanx on the oblique view which may be from overlying structures with nondisplaced fracture not completely excluded. # left great toe ulcer -ordered wound consult Goals of care/advance care planning; FULL CODE; discussed with the patient >15 minutes PUD prophylaxis: DVT prophylaxis: PCP-patient reported he does not have a PCP Plan discussed with Dr. Quinn, nursing staff, patient Total time spent on patient evaluation, chart review, assessment and plan, discussion discussion >30 minutes Plan discussed with: Patient Plan discussed with: Patient, Other (RN) My Orders Orders - JESS SOUZA RESIDENT Procedure Category Date Status Time Admit ADMIT 05/25/24 Transmitted 22:52 Code Status CODE 05/25/24 Transmitted 22:52 Full Liq Diet DIET 05/26/24 Transmitted Breakfast Ondansetron Hcl PHA 05/25/24 In Process (Zofran) 23:00 Docusate Sodium PHA 05/25/24 In Process Capsule (Colace 23:00 Morphine Sulfate PHA 05/25/24 In Process Injection 23:00 Nitroglycerin PHA 05/25/24 In Process Sublingual (Ntrostat 23:00 Morphine Sulfate PHA 05/25/24 In Process Injection 23:00 Oxygen By Nasal RT 05/25/24 Transmitted Cannula 22:52 Stat Ekg For Chest MADELEINE 05/25/24 In Process Pain 22:52 Notify Md Of Changes MADELEINE 05/25/24 In Process From Base 22:52 Counterintelligence Specialist For MADELEINE 05/25/24 In Process 24 Hours 22:52 Emergency Dysrhythmia MADELEINE 05/25/24 In Process Protocol 22:52 Rhythm Strips Once MADELEINE 05/25/24 In Process Every Shift 22:52 Folic Acid... PHA 05/26/24 Logged 18:00 Thiamine Inj PHA 05/26/24 Logged 10:00 Folic Acid Tablet PHA 05/26/24 Logged 10:00 Multiple Vitamin PHA 05/26/24 Logged Tablet (Mvi Tab) 10:00 Lorazepam 2mg/Ml Inj PHA 05/25/24 Logged (Ativan Inj) 23:30 Etoh Withdrawal MADELEINE 05/25/24 In Process Assessment 23:24 Etoh Withdrawal MADELEINE 05/25/24 In Process Assessment 23:24 Complete Blood Count LAB 05/26/24 Verified 04:00 Comprehensive LAB 05/26/24 Verified Metabolic Panel 04:00 Magnesium LAB 05/26/24 Verified 04:00 Date of Service: May 25, 2024 Billing Provider: LAKESHA QUINN MD Common Visit Codes: [id number] INP/OBS CARE (HIGH) Secondary Visit Codes: [id number] CARE PLAN 30 MINUTES JESS SOUZA RESIDENT May 25, 2024 23:33 LAKESHA QUINN MD May 26, 2024 09:15
[2024-05-26] MEDS: LORazepam 2MG/ML-1ML VIAL IV SCH (00:46)
[2024-05-26 02:32] LABS: Urine Bacteria None Seen /hpf (None Seen)
[2024-05-26 02:47] LABS: Urine Blood Negative /uL (Negative); Urine Clarity Clear (Clear); Urine Color Yellow (Yellow); Urine Mucus FEW (None Seen); Urine Protein, UAD Negative (Negative); Urine Specific Gravity 1.027 (1.001-1.035); Urine Urobilinogen Normal (Negative); Urine WBC 2 /hpf (0 - 3); Urine pH 5.5 (5.0-9.0)
[2024-05-26 02:54] LABS: Amphetamine Screen, Urine Pos (NEGATIVE); Barbiturate Scree,Urine Neg (NEGATIVE); Benzodiazephine Screen, Urine Pos (NEGATIVE); Cannabinoid Screen, Urine Neg (NEGATIVE); Cocaine Screen, Urine Neg (NEGATIVE); Opiate Scree,Urine Neg (NEGATIVE); Phencyclidine Screen, Urine Neg (NEGATIVE)
[2024-05-26 04:48] LABS: Basophils # (auto) 0 10 ^3/uL (0-0.2); Basophils % (auto) 0.2 % (0.0-2.0); Eosinophils # (auto) 0.1 10 ^3/uL (0-0.8); Eosinophils % (auto) 1.3 % (0.0-7.0); Hematocrit 43.7 % (41.0-53.0); Hemoglobin 14.4 g/dL (13.5-17.5); Lymphocytes # (auto) 1.9 10 ^3/uL (0.4-5.4); Lymphocytes % (auto) 25.6 % (10.0-50.0); Mean Corpuscular Hemoglobin 29.7 pg (28.0-32.0); Mean Corpuscular Hgb Conc. 33.1 g/dL (32.0-36.0); Mean Corpuscular Volume 89.7 fL (80.0-100.0); Monocytes # (auto) 0.6 10 ^3/uL (0-1.3); Monocytes % (auto) 8.7 % (0.0-12.0); Neutrophils # (auto) 4.7 10 ^3/uL (1.6-8.6); Neutrophils % (auto) 64.2 % (37.0-80.0); Platelet Count (auto) 248 10^3/uL (140-450); Red Blood Cells 4.87 10^6/uL (4.5-5.90); Red Cell Distribution Width 13.8 % (11.8-14.3); White Blood Cell 7.2 10^3/uL (4.4-10.8)
[2024-05-26 05:02] LABS: INR 0.96 (0.9-1.15); Prothrombin Time 10.2 sec (9.3-11.8)
[2024-05-26 05:08] LABS: Alanine Aminotransferase 23 U/L (7-40); Albumin 3.7 g/dL (3.2-4.8); Alkaline Phosphatase 78 U/L (46-116); Anion Gap 7 (5-15); Aspartate Aminotransferase 34 U/L (13-40); BUN/Creatinine Ratio 21.1 (10.0-20.0); Bilirubin, Total 1.2 mg/dL (0.2-1.0); Blood Urea Nitrogen 16 mg/dL (9-23); Calcium 9.7 mg/dL (8.7-10.4); Carbon Dioxide 26 mmol/L (20-31); Chloride 108 mmol/L (98-107); Glucose 81 mg/dL (74-106); Phosphorus 4.2 mg/dL (2.4-5.1); Potassium 4.3 mmol/L (3.5-5.1); Sodium 141 mmol/L (136-145); Total Protein 6.2 g/dL (5.7-8.2)
[2024-05-26 07:30] VITALS: PULSE 66; RESP 13; O2SAT 99
[2024-05-26] MEDS: MULTIPLE VITAMIN TAB PO SCH (09:55)
[2024-05-26] MEDS: THIAMINE 100mg/ml INJ (200mg/2ml VIAL) IV SCH (09:55)
[2024-05-26] MEDS: FOLIC ACID 1 MG TAB PO SCH (09:55)
[2024-05-26] MEDS: LORazepam 2MG/ML-1ML VIAL IV PRN (16:28)
--- NOTE | 2024-05-26 16:53 | DVHPNRES ---
Progress Note Date Seen: May 26, 2024 Resident Creating Document: ABHINAVJJOEY McclainCHANEL RESIDENT Medical Necessity Reason Pt with a Central, PICC or Fol: No Subjective Review of Systems Patient is a 29-year-old male with a past medical history of schizophrenia, polysubstance use methamphetamine, marijuana, alcohol came to the ER with a chief complaint of feeling confused following a bout of exacerbated alcohol drinking. Patient reported that he had 4 tall cans of beer in the evening and also reported that he smoked methamphetamine following which he started feeling confused and dizzy which prompted him to come to the hospital. Patient denied fever, chills, nausea, vomiting, diarrhea. On Admission patient's blood pressure 141/84 mmHg, heart rate 100 beats per minute, saturating 95% on room air. Patient is labs showed CBC within normal limits, BMP showed kidney function and electrolytes within normal limits. Urine drug screen revealed elevated serum alcohol and methamphetamine positive. Patient complained of left pain , foot x-ray was done which showedLinear lucency over the distal part of the 4th toe distal phalanx on the oblique view which may be from overlying structures with nondisplaced fracture not completely excluded. Past medical history: Schizophrenia, history of polysubstance abuse Past surgical history : none Social history: Patient is homeless and lives on the [address] reports ranging 3-4 tall cans of beer every day and using methamphetamine. Review of systems Patient seen and examined at the bedside. Patient was seen in the morning during which he was somnolent and had to be wakened up. GCS fourteen E3 V5 M6 On waking up patient was A/O X 2. CIWA score was calculated less than 8, patient had no agitation no anxiety no nausea vomiting, no headache, no photophobia, no auditory or visual hallucinations, no tactile hallucination. Patient reported that he feels self-harm but did not have any plan. Patient did not report of any foot pain. In the afternoon patient was reassessed, spontaneously eye opening GCS 15. Alert and oriented x2. CIWA less than 8. Patient reported no feeling of self- harm. Objective vital signs Vital Sign Date Time Temp Pulse Resp B/P (MAP) Pulse Ox O2 Delivery O2 Flow Rate FiO2 05/26/24 13:00 83 16 119/78 (92) 97 05/26/24 07:30 Room Air* 0 21 05/26/24 07:30 97.7 97.7 medications Current Medications Medications Dose Ordered Sig/Shireen Route Start Time Stop Time Status Last Admin Dose Admin Ondansetron HCl 4 mg Q4HP PRN IV 05/25/24 23:00 Docusate Sodium 100 mg BIDPRN PRN PO 05/25/24 23:00 Morphine Sulfate 2 mg Q4HPRN PRN IV 05/25/24 23:00 Nitroglycerin 0.4 mg Q5MINP PRN SL 05/25/24 23:00 Morphine Sulfate 2 mg Q30M PRN IV 05/25/24 23:00 Folic Acid 1 mg/ Multivitamins 10 ml/Magnesium Sulfate 8 meq/ Thiamine HCl 100 mg/Dextrose 1,013.2 ml @ 125.001 mls/hr DAILY@1800 INJ 05/26/24 18:00 Thiamine HCl 100 mg DAILY IV 05/26/24 10:00 05/26/24 09:55 100 MG Folic Acid 1 mg DAILY PO 05/26/24 10:00 05/26/24 09:55 1 MG Multivitamins 1 tab DAILY PO 05/26/24 10:00 05/26/24 09:55 1 TAB Lorazepam 1 mg Q4HP PRN IV 05/26/24 06:15 05/26/24 16:28 1 MG Examination Physical Examination Gen - no pallor, no icterus, no cyanosis, no clubbing, no LAD, no edema . Skin - Patients skin is warm and dry. HEENT - normocephalic, atraumatic, dry mucous membranes. Neck - full ROM, no LAD, no JVD Pulmonary - B/L vesicular breath sounds. no crackles , no wheezing, no stridor. cardiovascular - normal S1,S2 heard. no murmurs heard. peripheral pulses normal radial 2+, pedal 2+. capillary refill normal <2 secs. GI - soft abdomen without tenderness to palpation. no hepatospleenomegaly. Bowel sounds normoactive Neurological - Patient is A/O X 2 . Bilateral upper extremity strength 5/5, bilateral lower extremity strength 5/5, no facial droop, normal speech, no tremor, no sensory deficiets. Extremities- poor hygiene with toe abrasions, no cellulitis, no abscesses. laboratory and microbiology Laboratory Tests 05/26/24 03:36 Test 05/26/24 03:36 Range/Units Serum Glucose 81 74-106 mg/dL Problem List/Assessment/Plan Problem List/Assessment/Plan Assessment and plan # Toxic metabolic encephalopathy likely due to alcohol and methamphetamine - urine drug screen positive methamphetamine - plasma alcohol elevated -on arrival to the ED patient was given haloperidol and midazolam - CIWA<8 on assessment in the morning 05/26/2024 - patient on Ativan p.r.n. # Acute alcohol intoxication - patient's last drink was 4 tall beer cans before coming to the ED - watch for alcohol withdrawal - patient on Ativan p.r.n. - on banana bag with folic acid 1 mg, multivitamins 10 mL, magnesium 8 mEq, thiamine 100 mg - thiamine 100 mg daily IV - Zofran p.r.n. for nausea vomiting - IV fluids - regular diet # history of schizophrenia - patient reported to be on Zyprexa, fluoxetine, trazodone but does not remember the dose - tele psych consulted for further management # Right and left foot to abrasions - patient is homeless and lives in the street and likely poor hygiene - topical ointment b.i.d. # Polysubstance use -patient reported methamphetamine use and chronic alcoholism -counseled for more than 20 minutes for lifestyle modification and cessation of illicit drug use Goals of care discussed with the patient for over 30 minutes. Full code Plan discussed with Dr. Li Plan discussed with: Patient My Orders My Orders Orders - CHRISTIANO DE LA ROSA Procedure Category Date Status Time *Tele Psych Consult CONS 05/26/24 Transmitted 16:47 Regular Diet DIET 05/26/24 Transmitted Dinner Date of Service: May 26, 2024 Billing Provider: YADIRA FRANCO MD Common Visit Codes: [id number] INP/OBS CARE(HIGH) CHRISTIANO DE LA ROSA RESIDENT May 26, 2024 16:53 YADIRA FRANCO MD May 26, 2024 22:46
[2024-05-26] MEDS: FOLIC ACID 1 MG, MULTIPLE VITAMIN 10 ML, MAGNESIUM SULF SDV 50% 8 MEQ, THIAMINE INJ 100... INJ SCH (18:12)
[2024-05-26 19:54] VITALS: PULSE 106; RESP 17; O2SAT 95
[2024-05-27] VITALS (9 sets, daily range): BP systolic 114–144; BP diastolic 68–85; PULSE 87–107; RESP 18–20; TEMP 97.8–98.4; O2SAT 93–100
[2024-05-27 06:35] LABS: Basophils # (auto) 0 10 ^3/uL (0-0.2); Basophils % (auto) 0.3 % (0.0-2.0); Eosinophils # (auto) 0.1 10 ^3/uL (0-0.8); Eosinophils % (auto) 1.4 % (0.0-7.0); Hematocrit 41.2 % (41.0-53.0); Hemoglobin 14.1 g/dL (13.5-17.5); Lymphocytes # (auto) 1.8 10 ^3/uL (0.4-5.4); Mean Corpuscular Hemoglobin 30.6 pg (28.0-32.0); Mean Corpuscular Hgb Conc. 34.2 g/dL (32.0-36.0); Mean Corpuscular Volume 89.2 fL (80.0-100.0); Monocytes # (auto) 0.5 10 ^3/uL (0-1.3); Monocytes % (auto) 8.6 % (0.0-12.0); Neutrophils # (auto) 3.4 10 ^3/uL (1.6-8.6); Neutrophils % (auto) 58.7 % (37.0-80.0); Platelet Count (auto) 254 10^3/uL (140-450); Red Blood Cells 4.62 10^6/uL (4.5-5.90); White Blood Cell 5.8 10^3/uL (4.4-10.8)
[2024-05-27 06:41] LABS: Anion Gap 7 (5-15); Calcium 9.6 mg/dL (8.7-10.4); Carbon Dioxide 26 mmol/L (20-31); Chloride 108 mmol/L (98-107); Potassium 4.6 mmol/L (3.5-5.1); Sodium 141 mmol/L (136-145)
[2024-05-27 06:47] LABS: BUN/Creatinine Ratio 18.9 (10.0-20.0); Blood Urea Nitrogen 18 mg/dL (9-23); Glucose 90 mg/dL (74-106)
[2024-05-27] MEDS: MORPHINE SULFATE INJ 2 MG/ml SYRG IV PRN (21:39)
--- NOTE | 2024-05-27 21:43 | DVHPNRES ---
Progress Note Date Seen: May 27, 2024 Resident Creating Document: ABHINAVJJOEY McclainDORINDAROBERT RESIDENT Medical Necessity Reason Pt with a Central, PICC or Fol: No Subjective Review of Systems Patient is a 29-year-old male with a past medical history of schizophrenia, polysubstance use methamphetamine, marijuana, alcohol came to the ER with a chief complaint of feeling confused following a bout of exacerbated alcohol drinking. Patient reported that he had 4 tall cans of beer in the evening and also reported that he smoked methamphetamine following which he started feeling confused and dizzy which prompted him to come to the hospital. Patient denied fever, chills, nausea, vomiting, diarrhea. On Admission patient's blood pressure 141/84 mmHg, heart rate 100 beats per minute, saturating 95% on room air. Patient is labs showed CBC within normal limits, BMP showed kidney function and electrolytes within normal limits. Urine drug screen revealed elevated serum alcohol and methamphetamine positive. Patient complained of left pain , foot x-ray was done which showedLinear lucency over the distal part of the 4th toe distal phalanx on the oblique view which may be from overlying structures with nondisplaced fracture not completely excluded. Past medical history: Schizophrenia, history of polysubstance abuse Past surgical history : none Social history: Patient is homeless and lives on the [address] reports ranging 3-4 tall cans of beer every day and using methamphetamine. Review of systems 05/26- Patient seen and examined at the bedside. Patient was seen in the morning during which he was somnolent and had to be wakened up. GCS fourteen E3 V5 M6 On waking up patient was A/O X 2. CIWA score was calculated less than 8, patient had no agitation no anxiety no nausea vomiting, no headache, no photophobia, no auditory or visual hallucinations, no tactile hallucination. Patient reported that he feels self-harm but did not have any plan. Patient did not report of any foot pain. In the afternoon patient was reassessed, spontaneously eye opening GCS 15. Alert and oriented x2. CIWA less than 8. Patient reported no feeling of self- harm. 05/27- patient seen and examined at the bedside. Patient alert and oriented person but disoriented to time and place. Patient obeys commands and responds to all questions appropriately. GCS 15. CIWA<8. Patient reports that he is anxious and has auditory hallucination reports that hears voices. Patient denied self-harm. Patient denied shortness of breath, chest, nausea, vomiting. Objective vital signs Vital Sign Date Time Temp Pulse Resp B/P (MAP) Pulse Ox O2 Delivery O2 Flow Rate FiO2 05/27/24 17:00 98.4 107 20 125/77 (93) 99 98.4 05/27/24 09:05 Room Air* 0 21 Total Intake and Output 05/26/24 05/26/24 05/27/24 15:00 23:00 07:00 Intake Total 400 ml Output Total 1800 ml 300 ml Balance -1800 ml -300 ml 400 ml medications Current Medications Medications Dose Ordered Sig/Shireen Route Start Time Stop Time Status Last Admin Dose Admin Ondansetron HCl 4 mg Q4HP PRN IV 05/25/24 23:00 Docusate Sodium 100 mg BIDPRN PRN PO 05/25/24 23:00 Morphine Sulfate 2 mg Q4HPRN PRN IV 05/25/24 23:00 Nitroglycerin 0.4 mg Q5MINP PRN SL 05/25/24 23:00 Morphine Sulfate 2 mg Q30M PRN IV 05/25/24 23:00 Thiamine HCl 100 mg DAILY IV 05/26/24 10:00 05/27/24 09:25 100 MG Folic Acid 1 mg DAILY PO 05/26/24 10:00 05/27/24 09:24 1 MG Multivitamins 1 tab DAILY PO 05/26/24 10:00 05/27/24 09:24 1 TAB Lorazepam 1 mg Q4HP PRN IV 05/26/24 06:15 05/27/24 03:49 1 MG Examination Physical Examination Gen - no pallor, no icterus, no cyanosis, no clubbing, no LAD, no edema . Skin - Patients skin is warm and dry. HEENT - normocephalic, atraumatic, dry mucous membranes. Neck - full ROM, no LAD, no JVD Pulmonary - B/L vesicular breath sounds. no crackles , no wheezing, no stridor. cardiovascular - normal S1,S2 heard. no murmurs heard. peripheral pulses normal radial 2+, pedal 2+. capillary refill normal <2 secs. GI - soft abdomen without tenderness to palpation. no hepatospleenomegaly. Bowel sounds normoactive Neurological - Patient is A/O X 1 . Bilateral upper extremity strength 5/5, bilateral lower extremity strength 5/5, no facial droop, normal speech, no tremor, no sensory deficiets. Extremities- poor hygiene with toe abrasions, no cellulitis, no abscesses. laboratory and microbiology Laboratory Tests 05/27/24 05:17 Test 05/27/24 05:17 Range/Units Serum Glucose 90 74-106 mg/dL Microbiology Date/Time Source Procedure Growth Status 05/27/24 03:15 Nose MRSA Screen - Final Complete Problem List/Assessment/Plan Problem List/Assessment/Plan Assessment and plan # Toxic metabolic encephalopathy likely due to alcohol and methamphetamine - urine drug screen positive methamphetamine - plasma alcohol elevated -on arrival to the ED patient was given haloperidol and midazolam - CIWA<8 on assessment in the morning 05/27/2024 - patient on Ativan p.r.n. # Acute alcohol intoxication - patient's last drink was 4 tall beer cans before coming to the ED - watch for alcohol withdrawal - patient on Ativan p.r.n. - on banana bag with folic acid 1 mg, multivitamins 10 mL, magnesium 8 mEq, thiamine 100 mg - thiamine 100 mg daily IV - Zofran p.r.n. for nausea vomiting - IV fluids - regular diet # history of schizophrenia - patient reported to be on Zyprexa, fluoxetine, trazodone but does not remember the dose - tele psych consulted for further management # Right and left foot to abrasions - patient is homeless and lives in the street and likely poor hygiene - topical ointment b.i.d. # Polysubstance use -patient reported methamphetamine use and chronic alcoholism -counseled for more than 20 minutes for lifestyle modification and cessation of illicit drug use Goals of care discussed with the patient for over 30 minutes. Full code Plan discussed with Dr. Li Plan discussed with: Patient Date of Service: May 27, 2024 Billing Provider: YADIRA FRANCO MD Common Visit Codes: [id number] INP/OBS CARE(HIGH) CHRISTIANO DE LA ROSA RESIDENT May 27, 2024 21:43 YADIRA FRANCO MD May 28, 2024 09:14
[2024-05-28 01:00] VITALS: BP 124/69; PULSE 82; RESP 18; TEMP 97.7; O2SAT 97
[2024-05-28 05:00] VITALS: BP 123/76; PULSE 80; RESP 18; TEMP 97.6; O2SAT 94
[2024-05-28 06:39] LABS: Chloride 105 mmol/L (98-107); Potassium 4.1 mmol/L (3.5-5.1); Sodium 139 mmol/L (136-145)
[2024-05-28 06:40] LABS: Anion Gap 7 (5-15); Calcium 9.3 mg/dL (8.7-10.4); Carbon Dioxide 27 mmol/L (20-31)
[2024-05-28 06:45] LABS: Blood Urea Nitrogen 12 mg/dL (9-23); Glucose 83 mg/dL (74-106)
--- NOTE | 2024-05-28 20:31 | DVHDSRES ---
Discharge Summary Date of Admission Resident Creating Document: CHRISTIANO DE LA ROSA RESIDENT May 25, 2024 at 22:54 Date of Discharge: May 28, 2024 Admitting Diagnosis # toxic encephalopathy likely due to substance abuse and alcoholic intoxication # suspected alcohol intoxication # history of substance abuse # history of schizophrenia # suspected left 4th toe fracture # left great toe ulcer Labs/Diagnostic Data: Laboratory Results Test 05/28/24 05:31 05/27/24 05:17 05/26/24 08:58 05/26/24 03:36 Sodium Level 139 mmol/L (136-145) Potassium Level 4.1 mmol/L (3.5-5.1) Chloride Level 105 mmol/L (98-107) Carbon Dioxide Level 27 mmol/L (20-31) Anion Gap 7 (5-15) Blood Urea Nitrogen 12 mg/dL (9-23) Creatinine 0.75 mg/dL (0.700-1.30) Glomerular Filtration Rate Calc 124 mL/min (>90) BUN/Creatinine Ratio 16.0 (10.0-20.0) Serum Glucose 83 mg/dL (74-106) Calcium Level 9.3 mg/dL (8.7-10.4) White Blood Count 5.8 10^3/uL (4.4-10.8) Red Blood Count 4.62 10^6/uL (4.5-5.90) Hemoglobin 14.1 g/dL (13.5-17.5) Hematocrit 41.2 % (41.0-53.0) Mean Corpuscular Volume 89.2 fL (80.0-100.0) Mean Corpuscular Hemoglobin 30.6 pg (28.0-32.0) Mean Corpuscular Hemoglobin Concent 34.2 g/dL (32.0-36.0) Red Cell Distribution Width 14.0 % (11.8-14.3) Platelet Count 254 10^3/uL (140-450) Mean Platelet Volume 8.3 fL (6.9-10.8) Neutrophils (%) (Auto) 58.7 % (37.0-80.0) Lymphocytes (%) (Auto) 31.0 % (10.0-50.0) Monocytes (%) (Auto) 8.6 % (0.0-12.0) Eosinophils (%) (Auto) 1.4 % (0.0-7.0) Basophils (%) (Auto) 0.3 % (0.0-2.0) Neutrophils # (Auto) 3.4 10 ^3/uL (1.6-8.6) Lymphocytes # (Auto) 1.8 10 ^3/uL (0.4-5.4) Monocytes # (Auto) 0.5 10 ^3/uL (0-1.3) Eosinophils # (Auto) 0.1 10 ^3/uL (0-0.8) Basophils # (Auto) 0 10 ^3/uL (0-0.2) Nucleated Red Blood Cells 0.0 % Troponin I High Sensitivity 6 ng/L (</=54) Prothrombin Time 10.2 sec (9.3-11.8) Prothrombin Time INR 0.96 (0.9-1.15) Phosphorus Level 4.2 mg/dL (2.4-5.1) Magnesium Level 2.0 mg/dL (1.6-2.6) Total Bilirubin 1.2 mg/dL (0.2-1.0) Aspartate Amino Transferase (AST) 34 U/L (13-40) Alanine Aminotransferase (ALT) 23 U/L (7-40) Alkaline Phosphatase 78 U/L (46-116) Ammonia 27 umol/L (11-32) B-Type Natriuretic Peptide 5.49 pg/mL (0-100) Total Protein 6.2 g/dL (5.7-8.2) Albumin 3.7 g/dL (3.2-4.8) Test 05/26/24 02:30 05/25/24 16:18 Urine Color Yellow (Yellow) Urine Clarity Clear (Clear) Urine pH 5.5 (5.0-9.0) Urine Specific [place] 1.027 (1.001-1.035) Urine Protein Negative (Negative) Urine Ketones Trace (Negative) Urine Blood Negative /uL (Negative) Urine Nitrite Negative (Negative) Urine Bilirubin Negative (Negative) Urine Urobilinogen Normal mg/dL (Negative) Urine Leukocyte Esterase Negative /uL (Negative) Urine RBC 1 /hpf (0 - 3) Urine WBC 2 /hpf (0 - 3) Urine Squamous Epithelial Cells None seen /hpf (<5) Urine Bacteria None seen /hpf (None Seen) Urine Mucus Few (None Seen) Urine Glucose Normal mg/dL (Normal) Urine Opiates Screen Neg (NEGATIVE) Urine Fentanyl Screen Neg (NEGATIVE) Urine Barbiturates Screen Neg (NEGATIVE) Urine Phencyclidine Screen Neg (NEGATIVE) Urine Amphetamines Screen Pos (NEGATIVE) Urine Benzodiazepines Screen Pos (NEGATIVE) Urine Cocaine Screen Neg (NEGATIVE) Urine Cannabinoids Screen Neg (NEGATIVE) Salicylates Level < 3.0 mg/dL (-30) Acetaminophen Level < 2.0 UG/ML (10.0-20.0) Plasma/Serum Blood Alcohol 45.2 mg/dL (<10) Other Laboratory Tests 05/28/24 05:31 05/27/24 05:17 Brief Hx & Hospital Course: Patient is a 29-year-old male with a past medical history of schizophrenia presented with altered mental status. Patient reported that he is active methamphetamine user and drinks 3-4 tall cans of beer every day. Patient reported that on the evening before admission he drank 4 tall cans of beer and had already smoked methamphetamine following which he started feeling dizzy, confused and he was brought to the hospital. Patient was managed for alcohol withdrawal and tele psych were consulted as the patient reported that he had active auditory hallucinations and was not feeling safe to go home. On 05/28/2024 patient reportedly went out to smoke and did not come back to his room. Patient eloped pending tele psych consultation and was not stable to discharge. Consults/Reason for consult Tele psych consult for history of schizophrenia Operations or Procedures Foot x-ray right and left Condition at Discharge: Undetermined Final Diagnosis/Problems List # Toxic metabolic encephalopathy likely due to alcohol and methamphetamine # Acute alcohol intoxication # history of schizophrenia # Right and left foot to abrasions # Polysubstance use Discharge Disposition: Eloped Discharge Statement: "Patient was advised to return to the ER or call 911 if any headaches, dizziness, shortness of breath, chest pain, abdominal pain, bleeding, fevers, or worsening of medical condition. Patient was counseled about treatment plan, medications, possible side effects, patientverbalized understanding. All questions were answered to the best of my ability. This discharge took greater then 30 minutes in planning, reviewing documentation, counseling the patient, and discussing with other team members." ASSESSMENT ASSESSMENT Assessment CHRISTIANO DE LA ROSA RESIDENT May 28, 2024 20:31
== END 2024-05-28 06:52 | disposition left against medical advice (07) | DRG 816 ==
LOC: ER 13:40 → OVERFLOW 22:54 → WEST WING 05-27 03:05
PROVIDERS: ADMIT Student in an Organized Health Care Education/Training Program; ATTEND Student in an Organized Health Care Education/Training Program
DX: T51.91XA Toxic effect of unspecified alcohol, accidental (unintentional), initial encounter (principal); G92.8 Other toxic encephalopathy; L97.529 Non-pressure chronic ulcer of other part of left foot with unspecified severity; F15.90 Other stimulant use, unspecified, uncomplicated; F20.9 Schizophrenia, unspecified; Y90.2 Blood alcohol level of 40-59 mg/100 ml; S90.812A Abrasion, left foot, initial encounter; S90.811A Abrasion, right foot, initial encounter; Z59.02 Unsheltered homelessness; X58.XXXA Exposure to other specified factors, initial encounter; Y93.89 Activity, other specified; Y92.89 Other specified places as the place of occurrence of the external cause; Y99.8 Other external cause status
CPT/HCPCS: 36415; 73630; 80048; 80053; 80307; 80320; 80329; 81001; 82140; 83735; 83880; 84100; 84484; 85025; 85610; 87081; 96372; 99291; G0378; J2250